=== PATIENT | female | born 1960 | race Caucasian/White ===

== ENCOUNTER 2021-09-16 21:42 | Emergency (ER) | payer OTHER ==
[~2021-09-16] VITALS: Ht 167.6 cm; Wt 72.4 kg
[2021-09-16 22:05] VITALS: BP 138/78
[2021-09-16] MEDS ORDERED: CEPH500C PO (22:06)
--- NOTE | 2021-09-16 22:07 | PHYS DOC ---
Adult General Chief Complaint Chief Complaint: LACERATION/AVULSION HPI HPI Patient is a otherwise healthy 61-year-old female who presents with a chief complaint of laceration to the distal tip of her index finger that happened while she was cutting avocados at home just before coming in. States he is not up-to-date on her tetanus. Denies any other injuries. States it did not really hurt. Review of Systems Review of Systems Review of systems otherwise unremarkable except noted in HPI Allergies Allergies Allergies Coded Allergies Type Severity Reaction Last Updated Verified No Known Drug Allergies 02/06/16 No Physical Exam Physical Exam Constitutional: Well developed, well nourished, no acute distress, non-toxic appearance. [] Extremities: Neurovascular exam intact, half centimeter superficial laceration at the distal tip of the left index finger, bleeding controlled Neurologic: Alert and oriented X 3, normal motor function, normal sensory function, no focal deficits noted. [] Psychologic: Affect normal, judgement normal, mood normal. [] EKG EKG [] Radiology/Procedures Radiology/Procedures Wound cleaned. Dermabond repaired. Bandaged [] Heart Score C/O Chest Pain: No Risk Factors: Risk Factors: DM, Current or recent (<one month) smoker, HTN, HLP, family history of CAD, obesity. Risk Scores: Risk Factors: DM, Current or recent (<one month) smoker, HTN, HLP, family history of CAD, obesity. Course & Med Decision Making Course & Med Decision Making Patient is a 61-year-old female who presents with a left distal index finger laceration Vital signs not concerning. Physical exam noted above. Updated on tetanus. Started on antibiotics. Dermabond repaired. No need for pain medicine Gave wound care instructions. Discussed symptom control at home. Advised to follow-up with primary care physician this week. Gave return precautions to the ED Patient grateful, verbalized understanding and agreed with plan of discharge [] Dragon Disclaimer Dragon Disclaimer This electronic medical record was generated, in whole or in part, using a voice recognition dictation system. Departure Departure: Impression: Primary Impression: Finger laceration Disposition: 01 HOME / SELF CARE / HOMELESS Condition: STABLE Referrals: GIANA WADE DO (PCP) Patient Instructions: Fingertip Laceration Additional Instructions: Fever coming into the emergency department tonight and allowing us to take care of you. Please read the attached information carefully go over things we discussed. You can use Tylenol and ibuprofen as needed. You can also use ice. Please manage the wound as we discussed with warm soap and water and changing bandage daily. Please take antibiotics as prescribed. Please follow-up with your primary care physician tomorrow to update on ED visit and set up a follow- up as needed. Please come back with new or concerning symptoms as discussed. Scripts Cephalexin (KEFLEX) 500 Mg Capsule 1 CAP PO TID for wound for 3 Days, #9 CAP Prov: IVY BARRAZA MD 09/16/21 IVY BARRAZA MD Sep 16, 2021 22:07
[2021-09-16] MEDS ORDERED: CEPHALEXIN 250 MG CAPSULE PO ONE (22:30)
[2021-09-16] MEDS ORDERED: DIPHTH,PERTUSS(ACELL),TET TOX 0.5 ML DISP.SYRIN. VAX IM ONE (22:30)
== END 2021-09-16 22:25 | disposition home or self-care (01) ==
LOC: ER 21:42
DX: S61.211A Laceration without foreign body of left index finger without damage to nail, initial encounter (principal); W26.8XXA Contact with other sharp object(s), not elsewhere classified, initial encounter; Y93.89 Activity, other specified; Y92.89 Other specified places as the place of occurrence of the external cause; Y99.8 Other external cause status
CPT/HCPCS: 12001; 90471; 90715; 99283